=== PATIENT | female | born 1990 | race Caucasian/White ===

== ENCOUNTER → 2016-09-05 | Outpatient (CLI) | payer BC ==
[~2016-09-05] MED LIST: NO HOME MEDICATIONS
== END ==
LOC: COL.RAD 10:05
DX: M41.85 Other forms of scoliosis, thoracolumbar region (principal)

== ENCOUNTER → 2016-10-08 | Outpatient (CLI) | payer BC | LOC: COL.PUL 10:00 | DX: J45.20 Mild intermittent asthma, uncomplicated (principal) ==